=== PATIENT | male | born 1980 | race Caucasian/White ===

== ENCOUNTER 2019-09-26 12:27 | Emergency (ER) | payer OTHER ==
[2019-09-26 12:35] VITALS: BMI 23.1
--- NOTE | 2019-09-26 12:36 | PDOC ---
Rapid Medical Evaluation Chief Complaint: Pain, Acute Time Seen by Provider: 09/26/19 12:31 Medical Evaluation: Allergies Allergy/AdvReac Type Severity Reaction Status Date / Time No Known Allergies Allergy Verified 09/26/19 12:31 09/26/19 12:34 CC: Lower abd pain x 3 days Pt is a 39 y/o male who presents to the ED with 3 days of lower abdominal pain and constipation. Saw his PMD and was told to take Miralax but did not take it. Last BM was today but it was small and hard stool. Has urge to have a BM. No abd surgery in the past. No urinary symptoms. On brief exam: Non toxic appearing, diffuse lower abdominal tenderness to palpation. No significant CVA tenderness. Orders: IV, labs, abd xray Proceed to ED for further evaluation
[2019-09-26 13:51] LABS: BASO % 0.2 % (0-2.0); EOS % 0.6 % (0-4.5); HEMATOCRIT 46.7 % (35.4-49); HEMOGLOBIN 15.2 GM/dL (11.7-16.9); LYMPH % 7.9 % (8-40); MCH 27.7 pg (25.7-33.7); MCHC 32.5 g/dl (32.0-35.9); MEAN CELL VOLUME 85.1 fl (80-96); MEAN PLT VOLUME 9.7 fl (7.5-11.1); MONO % 5.8 % (3.8-10.2); NEUT % 85.5 % (42.8-82.8); PLATELET COUNT 226 K/MM3 (134-434); RBC 5.49 M/mm3 (4.00-5.60); RDW 13.4 % (11.9-15.9); WHITE BLOOD COUNT 12.9 K/mm3 (4.0-10.0)
[2019-09-26] MEDS ORDERED: KETOROLAC TROMETHAMINE 30 MG/1 ML VIAL IVPUSH ONE (14:09)
[2019-09-26] MEDS ORDERED: SODIUM CHLORIDE 1,000 ML IV STA (14:09)
[2019-09-26 14:16] LABS: ALBUMIN 3.6 g/dl (3.4-5.0); BILIRUBIN,TOTAL 0.4 mg/dL (0.2-1); BLOOD UREA NITROGEN 9.7 mg/dL (7-18); CALCIUM 9.2 mg/dL (8.5-10.1); CREATININE 1.1 mg/dL (0.55-1.3); POTASSIUM 4.3 mmol/L (3.5-5.1); TOT PROT 7.2 g/dl (6.4-8.2)
[2019-09-26] MEDS ORDERED: KETOROLAC TROMETHAMINE 30 MG/1 ML VIAL ONE (14:39)
--- NOTE | 2019-09-26 15:02 | PDOC ---
History of Present Illness - General Chief Complaint: Pain, Acute Stated Complaint: LF SIDE LWR ABD PAIN Time Seen by Provider: 09/26/19 12:31 History Source: Patient Exam Limitations: No Limitations - History of Present Illness Travel History: No Initial Comments: 09/26/19 14:47 39-year-old male presents the ED with left lower quadrant pain rating to his back associated with diarrhea for the past 2 days. Patient states chills and decreased appetite but denies recent constipation, fever, urinary complaints, or GI history. Patient also denies recent travel or recent illness 09/26/19 16:00 Timing/Duration: reports: getting worse Quality: reports: mild, moderate, cramping Abdominal Pain Onset Location: reports: LLQ Pain Radiation: reports: flank, back Activities at Onset: reports: none Aggravating Factors: improves with: None Alleviating Factors: improves with: None Past History - Travel Traveled outside of the country in the last 30 days: No Close contact w/someone who was outside of country & ill: No - Past Medical History Allergies/Adverse Reactions: Allergies Allergy/AdvReac Type Severity Reaction Status Date / Time No Known Allergies Allergy Verified 09/26/19 12:31 Home Medications: Ambulatory Orders Ciprofloxacin [Cipro (Restricted To Id)] 500 mg PO Q12H #20 tablet 09/26/19 Linaclotide [Linzess] 145 mcg PO ONCE 09/26/19 metroNIDAZOLE [Metronidazole] 500 mg PO TID #30 tablet 09/26/19 COPD: No - Psycho Social/Smoking Cessation Hx Smoking History: Never smoked Patient Lives Alone: No Lives with/in: spouse/SO Review of Systems - Review of Systems Able to Perform ROS?: Yes Constitutional: Yes: Chills HEENTM: No: Symptoms Reported Respiratory: No: Symptoms reported Cardiac (ROS): No: Symptoms Reported ABD/GI: Yes: Diarrhea, Abdominal cramping : No: Symptoms Reported Musculoskeletal: No: Symptoms Reported Integumentary: No: Symptoms Reported Neurological: No: Symptoms reported *Physical Exam - Vital Signs Last Vital Signs Temp Pulse Resp BP Pulse Ox 98.2 F 113 H 20 139/86 98 09/26/19 12:34 09/26/19 12:34 09/26/19 12:34 09/26/19 12:34 09/26/19 12:34 - Physical Exam General Appearance: Yes: Nourished, Appropriately Dressed. No: Apparent Distress HEENT: negative: Pale Conjunctivae Neck: positive: Supple Respiratory/Chest: positive: Lungs Clear, Normal Breath Sounds. negative: Respiratory Distress, Accessory Muscle Use Cardiovascular: positive: Regular Rhythm, Tachycardia. negative: Murmur Gastrointestinal/Abdominal: positive: Soft, Tenderness (Left lower quadrant left flank). negative: Distended, Guarding, Rebound Musculoskeletal: positive: CVA Tenderness (L) Extremity: positive: Normal Inspection Integumentary: positive: Warm, Moist Neurologic: positive: Motor Strength 5/5 (Ambulatory) ED Treatment Course - LABORATORY CBC & Chemistry Diagram: 09/26/19 13:19 09/26/19 13:19 - ADDITIONAL ORDERS Additional order review: Laboratory Results 09/26/19 09/26/19 13:19 13:19 Sodium 140 Potassium 4.3 Chloride 105 Carbon Dioxide 31 Anion Gap 4 L BUN 9.7 Creatinine 1.1 Est GFR (CKD-EPI)AfAm 96.81 Est GFR (CKD-EPI)NonAf 83.53 Random Glucose 112 H Calcium 9.2 Total Bilirubin 0.4 AST 12 L ALT 25 Alkaline Phosphatase 76 Total Protein 7.2 Albumin 3.6 Lipase 103 09/26/19 13:19 RBC 5.49 MCV 85.1 MCHC 32.5 RDW 13.4 MPV 9.7 Neutrophils % 85.5 H Lymphocytes % 7.9 L Monocytes % 5.8 Eosinophils % 0.6 Basophils % 0.2 - RADIOLOGY Radiology Studies Ordered: Category Date Time Status ABDOMEN & PELVIS CT W/O CONTR [CT] Stat CT Scan 09/26/19 14:09 Ordered Medical Decision Making - Medical Decision Making 09/26/19 14:22 Chief complaint: Left abdominal pain associated with nausea Exam: Patient with left lower quadrant left flank and left CVA tenderness. Tachycardic. Plan: Labs, urine, abdominal CT IV fluids and Toradol 09/26/19 15:36 Abdominal x-ray shows no fecal retention or constipation. There is some free air in the colon. There is no free air appreciated. Patient currently in [place] but states was asymptomatic as far as pain prior to transportation 09/26/19 15:37 Laboratory Tests 09/26/19 09/26/19 09/26/19 13:19 13:19 13:19 WBC 12.9 H Hgb 15.2 Hct 46.7 Absolute Neuts (auto) 11.0 H Neutrophils % 85.5 H Lymphocytes % 7.9 L Sodium 140 Potassium 4.3 Chloride 105 Carbon Dioxide 31 Anion Gap 4 L BUN 9.7 Creatinine 1.1 Est GFR (CKD-EPI)AfAm 96.81 Est GFR (CKD-EPI)NonAf 83.53 Random Glucose 112 H Calcium 9.2 Total Bilirubin 0.4 AST 12 L ALT 25 Alkaline Phosphatase 76 Total Protein 7.2 Albumin 3.6 Lipase 103 Urine results pending 09/26/19 16:01 Laboratory Tests 09/26/19 14:52 Urine Ketones Trace H Urine Blood Negative Urine Nitrite Negative Urine Bilirubin Negative Ur Leukocyte Esterase Negative ct results pending Discharge - Discharge Information Problems reviewed: Yes Clinical Impression/Diagnosis: Diverticulitis, Renal calculus Condition: Stable Disposition: HOME - Additional Discharge Information Prescriptions: Ciprofloxacin [Cipro (Restricted To Id)] 500 mg PO Q12H #20 tablet metroNIDAZOLE [Metronidazole] 500 mg PO TID #30 tablet - Follow up/Referral Referrals: ON STAFF,NOT [Primary Care Provider] - Jed Mcclain MD [Staff Physician] - Jarad Fatima MD [Staff Physician] - - Patient Discharge Instructions Additional Instructions: Drink plenty of fluids. Take Tylenol or Motrin as needed for pain. Follow pound keeper's instructions for appropriate dosage. Take metronidazole 500 mg 3 times a day for the next 10 days. Take ciprofloxacin 500 mg twice a day for the next 10 days. You been given a referral for gastroenterology and urology. Call to schedule an appointment. You should start to feel better 3 to 5 days. Even if you feel better finish all the medications. Avoid foods with seeds-strawberries, raspberries, poppy seeds, flaxseeds and whole grains. It is important that you get daily fiber. Leafy green vegetables will help with your fiber intake. Return to the emergency department for any new or worsening symptoms. Thank you very much for choosing us to provide your emergent healthcare needs. - Post Discharge Activity
[2019-09-26 15:56] LABS: URINE APPEARANCE CLEAR; URINE BILIRUBIN NEGATIVE (NEGATIVE); URINE COLOR YELLOW; URINE GLUCOSE (UA) NEGATIVE (NEGATIVE); URINE KETONE TRACE (NEGATIVE); URINE LEUK ESTERASE NEGATIVE (NEGATIVE); URINE NITRITE NEGATIVE (NEGATIVE); URINE PROTEIN NEGATIVE (NEGATIVE); URINE UROBILINOGEN 0.2 mg/dL (0.2-1.0)
--- NOTE | 2019-09-26 16:26 | PDOC ---
*Physical Exam - Vital Signs Last Vital Signs Temp Pulse Resp BP Pulse Ox 98.2 F 113 H 20 139/86 98 09/26/19 12:34 09/26/19 12:34 09/26/19 12:34 09/26/19 12:34 09/26/19 12:34 - Physical Exam General Appearance: Yes: Appropriately Dressed. No: Apparent Distress HEENT: positive: Normal ENT Inspection Respiratory/Chest: positive: Lungs Clear, Normal Breath Sounds. negative: Respiratory Distress, Accessory Muscle Use Cardiovascular: positive: Regular Rhythm, Regular Rate Gastrointestinal/Abdominal: positive: Normal Bowel Sounds, Tender (Left lower quadrant tenderness. Guarding present.), Soft Musculoskeletal: positive: Normal Inspection, CVA Tenderness (L) Extremity: positive: Normal Inspection ED Treatment Course - LABORATORY CBC & Chemistry Diagram: 09/26/19 13:19 09/26/19 13:19 - ADDITIONAL ORDERS Additional order review: Laboratory Results 09/26/19 09/26/19 09/26/19 14:52 13:19 13:19 Sodium 140 Potassium 4.3 Chloride 105 Carbon Dioxide 31 Anion Gap 4 L BUN 9.7 Creatinine 1.1 Est GFR (CKD-EPI)AfAm 96.81 Est GFR (CKD-EPI)NonAf 83.53 Random Glucose 112 H Calcium 9.2 Total Bilirubin 0.4 AST 12 L ALT 25 Alkaline Phosphatase 76 Total Protein 7.2 Albumin 3.6 Lipase 103 Urine Color Yellow Urine Appearance Clear Urine pH 5.0 Ur Specific [place] 1.024 Urine Protein Negative Urine Glucose (UA) Negative Urine Ketones Trace H Urine Blood Negative Urine Nitrite Negative Urine Bilirubin Negative Urine Urobilinogen 0.2 Ur Leukocyte Esterase Negative 09/26/19 13:19 RBC 5.49 MCV 85.1 MCHC 32.5 RDW 13.4 MPV 9.7 Neutrophils % 85.5 H Lymphocytes % 7.9 L Monocytes % 5.8 Eosinophils % 0.6 Basophils % 0.2 - Medications Given in the ED: ED Medications Discontinued Medications Generic Name Dose Route Start Last Admin Trade Name Freq PRN Reason Stop Dose Admin Sodium Chloride 1,000 mls @ 1,000 mls/hr 09/26/19 14:09 09/26/19 14:58 Normal Saline - IV 09/26/19 15:08 1,000 mls/hr ASDIR STA Administration Ketorolac Tromethamine 30 mg 09/26/19 14:09 09/26/19 14:58 Toradol Injection - IVPUSH 09/26/19 14:10 30 mg ONCE ONE Administration ED Progress Note - Progress Note Progress Note: 09/26/19 16:26 Received signout from nurse practitioner Marie. Briefly this is a 39-year-old male presents emergency department with left lower abdominal pain radiating to the left flank. Abdominal x-ray shows no fecal retention or constipation. Colonic air present. No free abdominal air. Laboratory testing reveals elevated WBC at 12.9. Chemistries are unremarkable. Lipase is unremarkable. Urinalysis notable for trace ketones. Otherwise unremarkable. CT of the abdomen and pelvis is pending Medical Decision Making - Medical Decision Making 09/26/19 17:40 CT scan is read by Dr. Waters: Acute diverticulitis seen involving the junction of the descending and the sigmoid colon as well as the upper third of the sigmoid colon. No definite evidence of abscess or pneumoperitoneum. 2 mm nonobstructing left renal calculus. Nonspecific gallbladder contraction as noted above. This patient's white count is 12,000 I feel it is safe to discharge home with p.o. antibiotics. discharge home with prescription for Flagyl 500 mg 3 times daily for 10 days and ciprofloxacin 500 mg twice daily for 10 days. Referrals for GI and urology for follow-up. I discussed the physical exam findings, ancillary test results and final diagnoses with the patient. I answered all of the patient's questions. The patient was satisfied with the care received and felt comfortable with the discharge plan and treatment plan. The patient will call their primary care physician within 24 hours to arrange follow-up and will return to the Emergency Department with any new, persistent or worsening symptoms. Discharge - Discharge Information Problems reviewed: Yes Clinical Impression/Diagnosis: Diverticulitis, Renal calculus Condition: Stable Disposition: HOME - Admission No - Additional Discharge Information Prescriptions: Ciprofloxacin [Cipro (Restricted To Id)] 500 mg PO Q12H #20 tablet metroNIDAZOLE [Metronidazole] 500 mg PO TID #30 tablet - Follow up/Referral Referrals: ON STAFF,NOT [Primary Care Provider] - Jarad Fatima MD [Staff Physician] - Jed Mcclain MD [Staff Physician] - - Patient Discharge Instructions Additional Instructions: Drink plenty of fluids. Take Tylenol or Motrin as needed for pain. Follow market risk specialist's instructions for appropriate dosage. Take metronidazole 500 mg 3 times a day for the next 10 days. Take ciprofloxacin 500 mg twice a day for the next 10 days. You been given a referral for gastroenterology and urology. Call to schedule an appointment. You should start to feel better 3 to 5 days. Even if you feel better finish all the medications. Avoid foods with seeds-strawberries, raspberries, poppy seeds, flaxseeds and whole grains. It is important that you get daily fiber. Leafy green vegetables will help with your fiber intake. Return to the emergency department for any new or worsening symptoms. Thank you very much for choosing us to provide your emergent healthcare needs. - Post Discharge Activity
--- NOTE | 2019-09-26 16:45 | PDOC ---
*Physical Exam - Vital Signs Last Vital Signs Temp Pulse Resp BP Pulse Ox 98.2 F 113 H 20 139/86 98 09/26/19 12:34 09/26/19 12:34 09/26/19 12:34 09/26/19 12:34 09/26/19 12:34 - Physical Exam 09/26/19 16:41 awake alert lungs clear bilat heart rrr no mrg abd soft llq ttp. no rebound no guarding. ext wwp. no edema. no cva tenderness. alert oriented x 3. ED Treatment Course - LABORATORY CBC & Chemistry Diagram: 09/26/19 13:19 09/26/19 13:19 - ADDITIONAL ORDERS Additional order review: Laboratory Results 09/26/19 09/26/19 09/26/19 14:52 13:19 13:19 Sodium 140 Potassium 4.3 Chloride 105 Carbon Dioxide 31 Anion Gap 4 L BUN 9.7 Creatinine 1.1 Est GFR (CKD-EPI)AfAm 96.81 Est GFR (CKD-EPI)NonAf 83.53 Random Glucose 112 H Calcium 9.2 Total Bilirubin 0.4 AST 12 L ALT 25 Alkaline Phosphatase 76 Total Protein 7.2 Albumin 3.6 Lipase 103 Urine Color Yellow Urine Appearance Clear Urine pH 5.0 Ur Specific [place] 1.024 Urine Protein Negative Urine Glucose (UA) Negative Urine Ketones Trace H Urine Blood Negative Urine Nitrite Negative Urine Bilirubin Negative Urine Urobilinogen 0.2 Ur Leukocyte Esterase Negative 09/26/19 13:19 RBC 5.49 MCV 85.1 MCHC 32.5 RDW 13.4 MPV 9.7 Neutrophils % 85.5 H Lymphocytes % 7.9 L Monocytes % 5.8 Eosinophils % 0.6 Basophils % 0.2 - Medications Given in the ED: ED Medications Discontinued Medications Generic Name Dose Route Start Last Admin Trade Name Freq PRN Reason Stop Dose Admin Sodium Chloride 1,000 mls @ 1,000 mls/hr 09/26/19 14:09 09/26/19 14:58 Normal Saline - IV 09/26/19 15:08 1,000 mls/hr ASDIR STA Administration Ketorolac Tromethamine 30 mg 09/26/19 14:09 09/26/19 14:58 Toradol Injection - IVPUSH 09/26/19 14:10 30 mg ONCE ONE Administration Medical Decision Making - Medical Decision Making 09/26/19 16:42 39 yo male with c/o llq pain diarrahea and intermittent constipation. nausea no vomiting. chills no fever. pain llq radiating to back constant worse with walking and movement. no urinary complaints/ did have a colonoscopy few months ago shows diverticulosis. on my exam llq ttp. no rebound no guarding. differnetial colitis, constipation, diverticulitis, plan ct a/p labs labs noted for mildly elevated wbc 12, ct a/p pending. pt seen and examined in conjunction with Lesley Salazar agree with assidaliant and plan. Discharge - Discharge Information Problems reviewed: Yes Clinical Impression/Diagnosis: Diverticulitis - Follow up/Referral Referrals: ON STAFF,NOT [Primary Care Provider] - - Patient Discharge Instructions - Post Discharge Activity
[2019-09-26 16:59] VITALS: BP 110/68; PULSE 100; TEMP 97.9
== END 2019-09-26 17:48 | disposition home or self-care (01) ==
LOC: JER 12:27
PROC: 3E0333Z Introduction of Anti-inflammatory into Peripheral Vein, Percutaneous Approach (ICD-10-PCS; principal; 2019-09-26)
DX: K57.32 Diverticulitis of large intestine without perforation or abscess without bleeding (principal); N20.0 Calculus of kidney
CPT/HCPCS: 36415; 74019-TC-FY; 74176-TC; 80053; 81003; 83690; 85025; 99282-25; J7030